=== PATIENT | female | born 1955 | race Caucasian/White ===

== ENCOUNTER 2017-09-29 12:13 | Inpatient (IN) | payer OTHER ==
[~2017-09-29] VITALS: Ht 172.7 cm; Wt 83.7 kg
[2017-09-29 12:23] VITALS: Ht 172.7 cm; Wt 83.7 kg
[2017-09-29 13:13] LABS: BASOPHIL % 0.7 % (0-2); PLATELET COUNT 223 x10^3mcL (130-400); RED CELL DISTRIBUTION WIDTH 12.9 % (11.5-14.5)
[2017-09-29 13:23] LABS: CALCIUM 9.4 mg/dL (8.5-10.1); CARBON DIOXIDE 28.6 mmol/L (21-32); CHLORIDE SERUM 104 mmol/L (98-107); CREATININE SERUM 0.8 mg/dL (0.6-1.0); GFR1 > 60 mL/min; GLUCOSE SERUM 188 mg/dL (74-106); POTASSIUM SERUM 4.2 mmol/L (3.5-5.1); SODIUM SERUM 138 mmol/L (136-145)
[2017-09-29 13:28] LABS: ALBUMIN 3.8 g/dL (3.4-5.0); ALKALINE PHOSPHATASE 131 U/L (46-116); ALT/SGPT 31 U/L (14-59); AST/SGOT 21 U/L (15-37); TOTAL PROTEIN, SERUM 7.1 g/dL (6.4-8.2)
[2017-09-29] MEDS ORDERED: 8 HOUR650 MG PO (14:18)
[2017-09-29] MEDS ORDERED: BAYER ASPIRIN R81 MG PO (14:19)
[2017-09-29] MEDS ORDERED: CHOLECALCIFEROL1 CRY PO (14:19)
[2017-09-29] MEDS ORDERED: NEURONTIN800 MG PO (14:20)
[2017-09-29] MEDS ORDERED: LEXAPRO20 MG PO (14:20)
[2017-09-29] MEDS ORDERED: GLU10XL PO (14:21)
[2017-09-29] MEDS ORDERED: METFORMIN HCL1000 MG PO (14:21)
[2017-09-29] MEDS ORDERED: PRILOSEC OTC20 M1 PO (14:22)
[2017-09-29] MEDS ORDERED: ZOCOR40 MG PO (14:22)
[2017-09-29 14:38] LABS: AMPHETAMINE QUAL UR NONE DETECTED (NEG <=1000)
[2017-09-29 14:58] VITALS: BP 123/62
[2017-09-29 15:03] LABS: MAGNESIUM 1.9 mg/dL (1.8-2.4)
[2017-09-29 15:12] VITALS: BP 133/65
[2017-09-29 21:24] VITALS: BP 122/63
[2017-09-30 06:11] VITALS: BP 115/50
[2017-09-30 08:44] VITALS: BP 113/58
[2017-09-30 12:09] VITALS: BP 113/54
[2017-09-30 14:23] LABS: BASOPHIL % 0.8 % (0-2); PLATELET COUNT 240 x10^3mcL (130-400)
[2017-09-30 14:57] LABS: CALCIUM 9.2 mg/dL (8.5-10.1); CARBON DIOXIDE 26.5 mmol/L (21-32); CHLORIDE SERUM 106 mmol/L (98-107); CREATININE SERUM 0.9 mg/dL (0.6-1.0); GFR1 > 60 mL/min; GLUCOSE SERUM 96 mg/dL (74-106); POTASSIUM SERUM 4.5 mmol/L (3.5-5.1); SODIUM SERUM 141 mmol/L (136-145)
[2017-09-30 17:14] VITALS: BP 96/57
[2017-09-30 20:22] VITALS: BP 99/56
[2017-10-01 05:45] VITALS: BP 126/64
[2017-10-01 08:43] VITALS: BP 128/63
[2017-10-01 13:11] VITALS: BP 128/68
[2017-10-01 14:02] VITALS: BP 135/50
[2017-10-01 17:29] VITALS: BP 125/66
[2017-10-01 17:40] VITALS: BP 122/68
== END 2017-10-01 18:53 | disposition other institution (70) | DRG 303 ==
LOC: ED 12:13 → DU 14:04
PROVIDERS: Emergency Medicine; Internal Medicine
DX: I25.10 Atherosclerotic heart disease of native coronary artery without angina pectoris (principal); E78.5 Hyperlipidemia, unspecified; F32.9 Major depressive disorder, single episode, unspecified; M19.90 Unspecified osteoarthritis, unspecified site; J44.9 Chronic obstructive pulmonary disease, unspecified; E11.40 Type 2 diabetes mellitus with diabetic neuropathy, unspecified; K21.9 Gastro-esophageal reflux disease without esophagitis; Z90.710 Acquired absence of both cervix and uterus; Z88.5 Allergy status to narcotic agent; Z82.49 Family history of ischemic heart disease and other diseases of the circulatory system
CPT/HCPCS: 82962; 83880; A9500; J2785; J7613; J7620; Q0092